=== PATIENT | female | born 1970 | race American Indian/Alaskan Native ===

== ENCOUNTER 2016-06-28 15:52 | Outpatient (CLI) | payer BC ==
--- NOTE | 2016-06-29 09:18 | Mammography Report ---
Bilateral digital screening mammogram with CAD. Comparison study is dated June 06, 2015. Findings: There is heterogeneous density of the breast parenchyma. Multiple surgical clips in the right breast are noted in the overall pattern is unchanged. There is no evidence of mass or suspicious calcifications. Mild postsurgical changes are stable. Impression: Stable benign findings. BI-RADS code: 2. Recommendation: Annual screening.
== END 2016-06-28 15:53 | disposition home or self-care (01) ==
LOC: SPVWC 15:52
PROVIDERS: ATTEND Internal Medicine Hematology & Oncology
DX: Z12.31 Encounter for screening mammogram for malignant neoplasm of breast (principal)
CPT/HCPCS: 77067; G0202

== ENCOUNTER 2017-12-19 11:27 | Outpatient (CLI) | payer BC ==
--- NOTE | 2017-12-20 12:19 | Mammography Report ---
BILATERAL DIGITAL SCREENING MAMMOGRAM WITH CAD: 12/19/17 11:27:00 CLINICAL: Routine screening.Breast cancer survivor status post right partial mastectomy in 2012. COMPARISON:06/28/16 FINDINGS: The breasts are heterogeneously dense, which may obscure small masses. Stable right inner postsurgical scar with surgical clips. No mass, suspicious architectural distortion or suspicious calcifications. IMPRESSION: No mammographic evidence of malignancy. BI-RADS CATEGORY: 2 -- Benign RECOMMENDATION: Routine mammographic screening in one year. COMMENT: Patient follow-up letters are generated via our [employer] application.
== END 2017-12-19 11:28 | disposition home or self-care (01) ==
LOC: SPVWC 11:27
PROVIDERS: ATTEND Internal Medicine Hematology & Oncology
DX: Z12.31 Encounter for screening mammogram for malignant neoplasm of breast (principal)
CPT/HCPCS: 77067

== ENCOUNTER 2019-10-23 11:43 | Outpatient (CLI) | payer BC ==
--- NOTE | 2019-10-23 12:41 | Ultrasound Report ---
LEFT BREAST ULTRASOUND INDICATION: Evaluate finding noted previously in the left subareolar breast. COMPARISON: 09/12/2019, 12/19/2017. FINDINGS: Targeted ultrasound of the left subareolar breast was performed to evaluate site of a previ ously noted finding seen in this region on the recent screening mammogram. There is a complicated sep tated cyst at the 1:00 position, 1 cm from the nipple. This measures up to 2.7 x 1.5 x 2.6 cm. Additi onally, there is a suspected debris filled cyst measuring 7 x 6 x 4 mm at the 5:00 position, 1 cm fro m the nipple. A similar suspected debris filled/complicated cyst at the 12:00 position, 1 cm from the nipple, measures up to 9 x 5 x 7 mm. IMPRESSION: Finding noted in the left subareolar breast on recent screening mammogram corresponds with multiple s uspected complicated/debris filled cysts (3). A six-month follow-up left breast ultrasound is recomme nded. BI-RADS Category 3: Probably Benign. A "normal" or negative report should not discourage follow up or biopsy of a clinically significant f inding. A written summary of these findings will be mailed to the patient. FURTHER INFORMATION: According to the [employer], yearly mammograms are recommend ed starting at age 40 and continuing as long as a woman is in good health. Breast MRI is recommended for women with an approximately 20-25% or greater lifetime risk of breast cancer, including women wi th a strong family history of breast or ovarian cancer and women who have been treated for Hodgkin's disease. Signer Name: Sukh Gonzales MD Signed: 10/23/2019 12:37 PM Workstation Name: [id number]
== END 2019-10-23 11:44 | disposition home or self-care (01) ==
LOC: SPVWC 11:43
PROVIDERS: ATTEND Family Medicine
DX: R92.8 Other abnormal and inconclusive findings on diagnostic imaging of breast (principal)

== ENCOUNTER 2021-12-03 11:42 | Outpatient (CLI) | payer OTHER ==
--- NOTE | 2021-12-07 08:55 | Mammography Report ---
DIGITAL SCREENING MAMMOGRAM WITH CAD, 12/03/2021 CLINICAL INFORMATION / INDICATION: Routine screening mammography. TECHNIQUE: Digital bilateral 2D mammography was obtained in the craniocaudal and mediolateral obliqu e projections. This examination was interpreted with the benefit of Computer-Aided Detection analysis . COMPARISON: 09/12/2019, 12/19/2017, 06/28/2016 FINDINGS: Breast Density: The breasts are heterogeneously dense, which may obscure small masses. No dominant mass, suspicious calcifications, or architectural distortion in either breast. Post-surgical changes are noted in the right breast. There has been no significant interval change. IMPRESSION: No mammographic evidence of malignancy. Follow up recommendation: Routine yearly screening mammogram. BI-RADS Category 2: BENIGN. A "normal" or negative report should not discourage follow up or biopsy of a clinically significant f inding. A written summary of these findings will be mailed to the patient. The patient will be entered into a mammography reporting system which will generate a reminder letter for the patient's next appointmen t at the appropriate interval. The [employer] recommends yearly mammograms starting at age 40 and continuing as l santos as a woman is in good health. Breast MRI is recommended for women with an approximate 20-25% or greater lifetime risk of breast cancer, including women with a strong family history of breast or ova daisha cancer or who have been treated for Hodgkin's disease. Signer Name: Ana Wang MD Signed: 12/07/2021 8:50 AM Workstation Name: [id number]
== END 2021-12-03 11:43 | disposition home or self-care (01) ==
LOC: SPVWC 11:42
PROVIDERS: ATTEND Family Medicine
DX: Z12.31 Encounter for screening mammogram for malignant neoplasm of breast (principal)
CPT/HCPCS: 77067